=== PATIENT | male | born 1970 | race Caucasian/White ===

== ENCOUNTER 2020-07-02 18:52 | Emergency (ER) | payer OTHER ==
[~2020-07-02] VITALS: Ht 188 cm; Wt 102.5 kg
[~2020-07-02 18:52] MED LIST: ACETAMINOPHEN-1 EAC1 PO; AMBIEN; CELEXA; CRESTOR10 MG PO; ERYTHROMYCIN500 MG PO; GERD MED; LIDOCAINE VISC100 M1 SWISH&SPIT; LISINOPRIL10 MG PO; NOHOMEMEDICATIONS; NORCO 5-325 TA1 EACH PO; OMEPRAZOLE 20 M20 M1 PO; PHENERGAN 25 MG25 M1 PO; PREVACID 30MG C30 M1 PG; TRAZODONE; VIBRAMYCIN 100100 MG PO; VICODIN 5-5001 EACH PO; ZOFRAN ODT4 MG SUBLING
[2020-07-02] MEDS ORDERED: NORCO 5-325 TA1 EAC2 PO (19:29)
[2020-07-02] MEDS ORDERED: CLEOCIN HCL150 MG PO (19:29)
[2020-07-02] MEDS ORDERED: IBUPROFEN 600600 M1 PO (19:32)
[2020-07-02 20:10] VITALS: BP 145/92
== END 2020-07-02 20:11 | disposition home or self-care (01) ==
LOC: M.ERS 18:52
DX: J02.0 Streptococcal pharyngitis (principal); I10 Essential (primary) hypertension; F17.210 Nicotine dependence, cigarettes, uncomplicated; Z88.0 Allergy status to penicillin; Z88.5 Allergy status to narcotic agent

== ENCOUNTER 2020-08-04 08:33 | Emergency (ER) | payer OTHER ==
[~2020-08-04] VITALS: Ht 188 cm; Wt 97.5 kg
[~2020-08-04 08:33] MED LIST changes: +CLEOCIN HCL150 MG PO; +IBUPROFEN 600600 M1 PO; +NORCO 5-325 TA1 EAC2 PO
[2020-08-04 09:28] LABS: ABSOLUTE BASOPHILS 0.1 thou/uL (0.0-0.2); ABSOLUTE EOSINOPHILS 0.3 thou/uL (0.0-0.7); ABSOLUTE MONOCYTES 1.2 thou/uL (0.0-1.2); ABSOLUTE NEUTROPHILS 11.7 thou/uL (1.6-8.1); BASOPHILS 0.5 %; EOSINOPHILS 1.8 %; HEMATOCRIT 44.8 % (42.0-52.0); HEMOGLOBIN 15.3 gm/dL (14.0-18.0); LYMPHOCYTES 18.3 %; MCH 33.2 pg (26.0-34.0); MCHC 34.2 g/dL (28.0-37.0); MCV 97.1 fL (80.0-100.0); MONOCYTES 7.2 %; MPV 8.8 fl. (7.2-11.1); NUCLEATED RBCS 0 /100WBC; PLATELET COUNT* 281 thou/uL (150-400); POLYS 72.2 %; RBC 4.62 mil/uL (4.50-6.00); RDW-CV 13.4 % (10.5-14.5); WBC 16.3 thou/uL (4.0-11.0)
[2020-08-04 09:32] LABS: CALCIUM 9.2 mg/dL (8.5-10.1); CREATININE 0.8 mg/dL (0.6-1.3); POTASSIUM 3.9 mmol/L (3.5-5.1)
[2020-08-04 11:38] VITALS: BP 146/87
== END 2020-08-04 11:40 | disposition home or self-care (01) ==
LOC: M.ERS 08:33
PROVIDERS: Emergency Medicine Emergency Medical Services
DX: J36 Peritonsillar abscess (principal); I10 Essential (primary) hypertension; F17.210 Nicotine dependence, cigarettes, uncomplicated; Z88.5 Allergy status to narcotic agent; Z88.0 Allergy status to penicillin